=== PATIENT | male | born 1985 | race Caucasian/White ===

== ENCOUNTER 2018-03-29 10:14 | Emergency (ER) | payer MEDICAID ==
[~2018-03-29] VITALS: Ht 591.1 cm; Wt 63.6 kg
[~2018-03-29 10:14] MED LIST: NO HOME MEDS
[2018-03-29 10:17] VITALS: BP 115/75
== END 2018-03-29 10:57 | disposition home or self-care (01) ==
LOC: ER 10:14
DX: F11.23 Opioid dependence with withdrawal (principal); G89.29 Other chronic pain; F12.90 Cannabis use, unspecified, uncomplicated; Z56.0 Unemployment, unspecified; Z59.0 Homelessness; Z60.2 Problems related to living alone
CPT/HCPCS: 99283

== ENCOUNTER 2018-07-28 16:06 | Emergency (ER) | payer MEDICAID ==
[~2018-07-28] VITALS: Ht 172.7 cm; Wt 68.2 kg
[2018-07-28 16:29] VITALS: BP 112/71
[2018-07-28] MEDS ORDERED: CEPH250T PO (16:51)
[2018-07-28] MEDS ORDERED: SULF1TAB49 PO (16:51)
[2018-07-28] MEDS ORDERED: LIDOcaine 1.5% w/epinephrine 1:200,000 5ml ampul IJ ONE (17:20)
[2018-07-28] MEDS ORDERED: LIDOcaine 1% w/epiNEPHrine 1:200,000 30ml vial IJ ONE (17:25)
[2018-07-28] MEDS ORDERED: cephalexin 250mg capsule PO ONE (17:40)
[2018-07-28] MEDS ORDERED: sulfamethoxazole/trimethoprim DS (800/160mg) tablet PO ONE (17:40)
== END 2018-07-28 17:52 | disposition home or self-care (01) ==
LOC: ER 16:06
DX: L02.414 Cutaneous abscess of left upper limb (principal); F12.10 Cannabis abuse, uncomplicated; G89.29 Other chronic pain; D64.9 Anemia, unspecified; Z56.0 Unemployment, unspecified; Z59.0 Homelessness
CPT/HCPCS: 10060; 99283; J3490

== ENCOUNTER 2019-08-08 23:41 | Emergency (ER) | payer MEDICAID ==
[~2019-08-08] VITALS: Ht 172.7 cm; Wt 70.0 kg
[2019-08-09] MEDS ORDERED: CEPH250T PO (00:26)
[2019-08-09 01:11] VITALS: BP 117/72
== END 2019-08-09 00:45 | disposition home or self-care (01) ==
LOC: ER 23:42
DX: S61.402A Unspecified open wound of left hand, initial encounter (principal); S61.401A Unspecified open wound of right hand, initial encounter; G89.29 Other chronic pain; F12.90 Cannabis use, unspecified, uncomplicated; F11.90 Opioid use, unspecified, uncomplicated; Z86.19 Personal history of other infectious and parasitic diseases; Z60.2 Problems related to living alone; Z59.0 Homelessness; Z56.0 Unemployment, unspecified; Z79.2 Long term (current) use of antibiotics; X58.XXXA Exposure to other specified factors, initial encounter; Y93.89 Activity, other specified; Y92.89 Other specified places as the place of occurrence of the external cause; Y99.8 Other external cause status
CPT/HCPCS: 99283

== ENCOUNTER 2020-08-01 23:41 | Inpatient (IN) | payer MEDICAID ==
[~2020-08-01] VITALS: Ht 172.7 cm; Wt 65.1 kg
[2020-08-01] MEDS ORDERED: naloxone 2mg/2ml inj IV STA (23:48)
[2020-08-01] MEDS ORDERED: normal saline 1000ML IV soln IV ONE (23:50)
[2020-08-02] VITALS (20 sets, daily range): BP systolic 95–118; BP diastolic 53–79
[2020-08-02] MEDS ORDERED: normal saline 1000ML IV soln IVB ONE (00:05)
[2020-08-02] MEDS ORDERED: acetaminophen 325mg tablet PO ONE (00:10)
[2020-08-02] MEDS ORDERED: piperacillin/tazo 3.375gm/50ml 50 ML IV ONE (00:10)
[2020-08-02] MEDS ORDERED: azithromycin/NS 500mg/250ml 250 ML IV ONE (00:10)
[2020-08-02 00:30] LABS: BASOPHILS % (AUTO) 0.2 % (0-1); EOSINOPHILS # (AUTO) 0.1 X10'3 (0-0.9); EOSINOPHILS % (AUTO) 0.5 % (0-6); HEMATOCRIT 30.1 % (42.0-52.0); HEMOGLOBIN 9.8 g/dl (14.0-17.9); LYMPHOCYTES # (AUTO) 0.6 X10'3 (1.1-4.8); LYMPHOCYTES % (AUTO) 4.8 % (21-51); MEAN CORPUSCULAR HEMOGLOBIN 23.4 PG (27.0-31.0); MEAN CORPUSCULAR HGB CONC 32.7 g/dL (33.0-36.5); MEAN CORPUSCULAR VOLUME 71.5 FL (78-98); MEAN PLATELET VOLUME 9.1 FL (7.4-10.4); MONOCYTES # (AUTO) 1.8 X10'3 (0-0.9); MONOCYTES % (AUTO) 13.3 % (2-12); NEUTROPHILS # (AUTO) 10.8 X10'3 (1.8-7.7); NEUTROPHILS % (AUTO) 81.2 % (42-75); PLATELET COUNT 100 X10'3 (140-440); RED BLOOD COUNT 4.21 X10'6 (4.70-6.10); RED CELL DISTRIBUTION WIDTH 16.2 % (11.5-14.5); WHITE BLOOD COUNT 13.3 X10'3 (4.5-11.0)
[2020-08-02 00:47] LABS: TOTAL CELLS COUNTED 100
[2020-08-02 00:48] LABS: ANISOCYTOSIS 1+; PLATELET ESTIMATE DECREASED
[2020-08-02 00:51] LABS: ALANINE AMINOTRANSFERASE 20 U/L (12-78); ALBUMIN 2.2 G/DL (3.4-5.0); ALBUMIN/GLOBULIN RATIO 0.5 (1.1-1.5); ALKALINE PHOSPHATASE 150 IU/L (46-116); ANION GAP 11 (8-16); ASPARTATE AMINO TRANSFERASE 37 U/L (10-37); BILIRUBIN,TOTAL 0.8 MG/DL (0.1-1.0); BLOOD UREA NITROGEN 60 MG/DL (7-18); BUN/CREATININE RATIO 31.9 (5.4-32.0); CALCIUM 8.3 MG/DL (8.5-10.1); CHLORIDE 94 MMOL/L (99-107); CREATININE 1.88 MG/DL (0.60-1.10); ETHANOL < 0.010 GM/DL (0.0-0.010); GLUCOSE 129 MG/DL (70-104); POTASSIUM 3.4 MMOL/L (3.5-5.1); SODIUM 130 MMOL/L (135-145); TOTAL PROTEIN 6.8 G/DL (6.4-8.2); eGFR 42 ML/MIN
[2020-08-02] MEDS ORDERED: erythromycin ophthalmic ointment 1gm tube RIGHTEYE ONE (01:05)
[2020-08-02] MEDS ORDERED: ibuprofen tablet 400 MG TABLET PO ONE (01:05)
[2020-08-02] MEDS ORDERED: normal saline 1000ml 1,000 ML IV ONE (01:30)
[2020-08-02] MEDS ORDERED: iohexol 300mg/ml 100ml inj. ONE (01:45)
[2020-08-02 01:52] LABS: CLARITY,URINE CLEAR (Clear); COLOR,URINE YELLOW (Yellow); GLUCOSE, URINE NEGATIVE (Neg); KETONES,URINE NEGATIVE (Neg); LEUKOCYTE ESTERASE ,URINE NEGATIVE (Neg); NITRITES, URINE NEGATIVE (Neg); OCCULT BLOOD,URINE LARGE (Neg); PH,URINE 5.5 (4.8-8.0); PROTEIN,URINE 100 mg/dl (Neg)
[2020-08-02 01:53] LABS: UA COLLECTION TYPE CLN CATCH MIDSTREAM
[2020-08-02 02:04] LABS: CELLULAR CAST 0-4 /LPF (NEGATIVE)
[2020-08-02 02:05] LABS: SQUAMOUS EPITHELIAL CELL,UR FEW /LPF (FEW); WBC CLUMPS,URINE FEW /HPF (NEGATIVE)
[2020-08-02 02:06] LABS: BACTERIA,URINE 2+ /HPF (Neg)
[2020-08-02 02:17] LABS: URINE AMPHETAMINE SCREEN POSITIVE (Neg); URINE BARBITUATE SCREEN NEGATIVE (Neg); URINE BENZODIAZEPINES SCREEN NEGATIVE (Neg); URINE CANNABINOID SCREEN NEGATIVE (Neg); URINE COCAINE SCREEN NEGATIVE (Neg); URINE METHADONE SCREEN NEGATIVE (Neg); URINE OPIATE SCREEN POSITIVE (Neg); URINE PHENCYCLIDINE SCREEN NEGATIVE (Neg)
[2020-08-02] MEDS: NORepinephrine 8mg/ 250ml NS 250 ML IV SCH ×2 (03:31→23:38)
[2020-08-02] MEDS ORDERED: magnesium 2GM in 50ml NS 50 ML IV PRN (03:55)
[2020-08-02] MEDS: normal saline 1000ml 1,000 ML IV SCH ×2 (03:55→23:38)
[2020-08-02] MEDS ORDERED: NORepinephrine 8mg/ 250ml NS 250 ML IV PRN (03:55)
[2020-08-02] MEDS ORDERED: potassium Cl 40MEQ/250ML bag 270 ML IV PRN (03:55)
[2020-08-02] MEDS ORDERED: potassium Cl 20 mEq SR tablet PO PRN (03:55)
[2020-08-02] MEDS ORDERED: ondansetron/PF 4mg/2ml inj IV PRN (03:55)
[2020-08-02] MEDS ORDERED: normal saline 1000ml 1,000 ML IV PRN (03:55)
[2020-08-02] MEDS ORDERED: magnesium 4gm in 100ml NS 100 ML IV PRN (03:55)
[2020-08-02] MEDS ORDERED: acetaminophen 325mg tablet PO PRN (03:55)
[2020-08-02 04:43] LABS: MAGNESIUM 2.1 MG/DL (1.5-2.4); PHOSPHORUS 2.9 MG/DL (2.3-4.5); TROPONIN I < 0.04 NG/ML (0.0-0.05)
[2020-08-02 04:50] LABS: PARTIAL THROMBOPLASTIN TIME 35 SECONDS (22-32)
[2020-08-02] MEDS ORDERED: SODIUM CHLORIDE IV ONE ×2 (05:00)
[2020-08-02] MEDS ORDERED: VANCOMYCIN IV ONE ×2 (05:00)
--- NOTE | 2020-08-02 05:20 | NUR ---
Patient here from ER in room ICU 2046. I have received report from Martin GOMEZ and had the opportunity to ask questions and assume patient care.
--- NOTE | 2020-08-02 06:10 | NUR ---
Patient in room ICU 2046. I have received report from NOC RN and had the opportunity to ask questions and assume patient care.
[2020-08-02] MEDS ORDERED: heparin 25,000 UNIT/250ml bag 250 ML IV SCH (06:20)
[2020-08-02] MEDS ORDERED: heparin 10,000 units/1 ML INJ IV PRN (06:20)
[2020-08-02] MEDS ORDERED: heparin 10,000 units/1 ML INJ IV ONE (06:20)
--- NOTE | 2020-08-02 06:22 | NUR ---
Problems reprioritized. Patient report given, questions answered & plan of care reviewed with oncoming shift.
[2020-08-02] MEDS: pantoprazole 40mg Tablet.DR PO SCH (07:32)
[2020-08-02] MEDS: docusate sod 100mg capsule PO SCH ×2 (07:32→20:46)
[2020-08-02] MEDS: potassium Cl 20 mEq SR tablet PO PRN ×2 (07:32→13:12)
[2020-08-02] MEDS: piperacillin/tazo 3.375gm/50ml 50 ML IV SCH ×3 (07:33→23:36)
[2020-08-02 07:34] LABS: ALANINE AMINOTRANSFERASE 18 U/L (12-78); ALBUMIN 1.8 G/DL (3.4-5.0); ALBUMIN/GLOBULIN RATIO 0.5 (1.1-1.5); ALKALINE PHOSPHATASE 105 IU/L (46-116); ANION GAP 10 (8-16); ASPARTATE AMINO TRANSFERASE 35 U/L (10-37); BILIRUBIN,TOTAL 0.8 MG/DL (0.1-1.0); BLOOD UREA NITROGEN 46 MG/DL (7-18); BUN/CREATININE RATIO 28.4 (5.4-32.0); CALCIUM 7.8 MG/DL (8.5-10.1); CHLORIDE 103 MMOL/L (99-107); CREATININE 1.62 MG/DL (0.60-1.10); GLUCOSE 131 MG/DL (70-104); POTASSIUM 3.5 MMOL/L (3.5-5.1); SODIUM 136 MMOL/L (135-145); TOTAL CARBON DIOXIDE 23.3 MMOL/L (24-32); TOTAL PROTEIN 5.7 G/DL (6.4-8.2); eGFR 50 ML/MIN
[2020-08-02] MEDS ORDERED: heparin, porcine 5000 units/ml vial SQ SCH (08:00)
[2020-08-02] MEDS: buprenorphine/naloxone 8MG-2MG SUBlingual film SL SCH (08:00)
--- NOTE | 2020-08-02 09:24 | NUR ---
During assessment, There were no open wounds on patient. Patient was cleaned and dried and new bedding. ALL IV fluids going. patient annoyed that he does not have any pain medication available as he states severe pain in left arm where he IM an injected of heroin. Throughout patients body, it was noted to have several track mccurdy on arms, legs feet and other places. Opti foam applied as prevention. Will continue to monitor.
--- NOTE | 2020-08-02 09:45 | NUR ---
Dr. Garcia at bedside with patient and Nurse. MD aware of CMP values and Cancelled CT of head. Pt was seen sitting up in bed eating breakfast A/O X3. Able to follow commands. Heparin drips will also be on hold due to patients Kidney function BUN 46, Cr 1.62. Echo ordered. CTA is also on hold until MD can review plan of care and studies. Dilaudid 1mg PRN Q4, if not tolerated change to PRN Q2. Will continue to monitor.
[2020-08-02] MEDS: HYDROmorphone 1 mg/ml syringe IV PRN ×3 (10:49→23:37)
--- NOTE | 2020-08-02 11:53 | NUR ---
Stopped patient drip for Norepinephrine that was at 0.2. Per MDs request to move pt upstairs. We will continue to monitor.
--- NOTE | 2020-08-02 13:17 | NUR ---
Initial: Pt admit DX septic pulmonary emboli, heroin OD, and hx hep C as well as homeless per EMR. PO 100% avg heart healthy diet meeting needs. No BM yet though new admit. No nutrition concerns at this time. Will continue to monitor. Rec: 1. continue heart healthy diet 2. bowel care per rx 3. wts per rx Addendum: 08/02/20 at [address] Amended: Links added.
[2020-08-02] MEDS: acetaminophen 325mg tablet PO PRN (17:05)
--- NOTE | 2020-08-02 17:11 | NUR ---
Called Dr. Garcia to report patient tachycardia 137s and temp rising. is aware and no new orders at this time. Treat Tylenol for fever and watch rhythm. OK to try Ativan as well. Will continue to monitor.
[2020-08-02] MEDS: LORazepam 2 mg/ml vial IV PRN (17:19)
--- NOTE | 2020-08-02 17:22 | NUR ---
Patient receive Tylenol and Ativan 1MG. We will continue to monitor.
[2020-08-02] MEDS: vancomycin/NS 1 GM ADD-VANTAGE 250 ML IV SCH (17:43)
--- NOTE | 2020-08-02 18:11 | NUR ---
Problems reprioritized. Patient report given, questions answered & plan of care reviewed with Adolph Nurse is aware of Tach cardiac as well a RR. Will continue to monitor.
[2020-08-02] MEDS: lactobacillus rhamnosus 10,000 MMU CELLS/CAPSULE PO SCH (20:46)
[2020-08-02] MEDS: enoxaparin 30mg/0.3ml syringe SUBCUT SCH (20:47)
[2020-08-03] VITALS (19 sets, daily range): BP systolic 94–129; BP diastolic 57–81
[2020-08-03] MEDS: LORazepam 2 mg/ml vial IV PRN ×2 (02:34→18:03)
[2020-08-03 03:35] LABS: BASOPHILS % (AUTO) 0.4 % (0-1); EOSINOPHILS % (AUTO) 0.4 % (0-6); HEMATOCRIT 24.9 % (42.0-52.0); HEMOGLOBIN 7.9 g/dl (14.0-17.9); LYMPHOCYTES # (AUTO) 1.2 X10'3 (1.1-4.8); LYMPHOCYTES % (AUTO) 11.8 % (21-51); MEAN CORPUSCULAR HGB CONC 31.8 g/dL (33.0-36.5); MEAN CORPUSCULAR VOLUME 72.3 FL (78-98); MONOCYTES # (AUTO) 1.5 X10'3 (0-0.9); MONOCYTES % (AUTO) 14.7 % (2-12); NEUTROPHILS # (AUTO) 7.6 X10'3 (1.8-7.7); NEUTROPHILS % (AUTO) 72.7 % (42-75); PLATELET COUNT 102 X10'3 (140-440); RED BLOOD COUNT 3.44 X10'6 (4.70-6.10); RED CELL DISTRIBUTION WIDTH 16.8 % (11.5-14.5); WHITE BLOOD COUNT 10.5 X10'3 (4.5-11.0)
[2020-08-03 03:59] LABS: ALANINE AMINOTRANSFERASE 14 U/L (12-78); ALBUMIN 1.6 G/DL (3.4-5.0); ALBUMIN/GLOBULIN RATIO 0.4 (1.1-1.5); ALKALINE PHOSPHATASE 96 IU/L (46-116); ANION GAP 9 (8-16); ASPARTATE AMINO TRANSFERASE 21 U/L (10-37); BILIRUBIN,TOTAL 0.6 MG/DL (0.1-1.0); BLOOD UREA NITROGEN 29 MG/DL (7-18); BUN/CREATININE RATIO 21.6 (5.4-32.0); CALCIUM 7.9 MG/DL (8.5-10.1); CHLORIDE 109 MMOL/L (99-107); CREATININE 1.34 MG/DL (0.60-1.10); GLUCOSE 121 MG/DL (70-104); MAGNESIUM 1.9 MG/DL (1.5-2.4); POTASSIUM 3.7 MMOL/L (3.5-5.1); SODIUM 140 MMOL/L (135-145); TOTAL CARBON DIOXIDE 21.7 MMOL/L (24-32); TOTAL PROTEIN 5.5 G/DL (6.4-8.2); eGFR 62 ML/MIN
[2020-08-03] MEDS: HYDROmorphone 1 mg/ml syringe IV PRN ×4 (04:14→21:20)
[2020-08-03] MEDS ORDERED: ibuprofen tablet 400 MG TABLET PO PRN (04:30)
--- NOTE | 2020-08-03 04:47 | NUR ---
TEMP 38.6 C, REFRACTORY TO TYLENOL. INFORMED BON OJEDA ORDERED, PUT ICE AND FAN ON PATIENT
[2020-08-03] MEDS: vancomycin/NS 1 GM ADD-VANTAGE 250 ML IV SCH ×2 (05:42→19:04)
--- NOTE | 2020-08-03 06:15 | NUR ---
Patient in room ICU 2046. I have received report from Adolph Dumont RN and had the opportunity to ask questions and assume patient care.
[2020-08-03] MEDS: piperacillin/tazo 3.375gm/50ml 50 ML IV SCH ×2 (07:42→15:08)
[2020-08-03] MEDS: docusate sod 100mg capsule PO SCH ×2 (07:43→20:49)
[2020-08-03] MEDS: pantoprazole 40mg Tablet.DR PO SCH (07:43)
[2020-08-03] MEDS: lactobacillus rhamnosus 10,000 MMU CELLS/CAPSULE PO SCH ×2 (07:43→20:49)
[2020-08-03] MEDS: buprenorphine/naloxone 8MG-2MG SUBlingual film SL SCH (08:00)
[2020-08-03] MEDS: acetaminophen 325mg tablet PO PRN (09:15)
--- NOTE | 2020-08-03 09:34 | NUR ---
Dr. Garcia at bedside with patient and Nurse. MD is aware of patient progress and will be working on his transfer to another unit. Patient stable per MD orders. VSS and patient able to follow commands. Will continue to monitor.
[2020-08-03] MEDS: normal saline 1000ml 1,000 ML IV SCH ×2 (13:29→19:07)
--- NOTE | 2020-08-03 16:35 | NUR ---
Report received from [facility] LIAISONAdolph
--- NOTE | 2020-08-03 16:39 | NUR ---
report called to receiving shift
--- NOTE | 2020-08-03 17:12 | NUR ---
Transferred to [facility] in stable condition. All belongings with pt (just clothes, no valuables). Receiving RN at bedside
[2020-08-03] MEDS ORDERED: VANCOMYCIN LEVEL IV ONE (17:30)
--- NOTE | 2020-08-03 18:35 | NUR ---
Problems reprioritized. Patient report given, questions answered & plan of care reviewed with PATRICIA Maldonado.
--- NOTE | 2020-08-03 18:41 | NUR ---
Patient in room PCU 3018. I have received report from Maira GOMEZ and had the opportunity to ask questions and assume patient care.
[2020-08-03] MEDS: enoxaparin 30mg/0.3ml syringe SUBCUT SCH (20:50)
[2020-08-04] MEDS: piperacillin/tazo 3.375gm/50ml 50 ML IV SCH ×4 (00:11→23:55)
[2020-08-04] MEDS: LORazepam 2 mg/ml vial IV PRN ×2 (00:39→20:31)
[2020-08-04 02:00] VITALS: BP 107/62
[2020-08-04] MEDS: HYDROmorphone 1 mg/ml syringe IV PRN ×5 (03:05→22:08)
[2020-08-04] MEDS ORDERED: lactulose 20gm/30ml cup PO PRN (03:55)
[2020-08-04] MEDS: vancomycin/NS 1 GM ADD-VANTAGE 250 ML IV SCH ×2 (05:44→17:47)
[2020-08-04] MEDS: normal saline 1000ml 1,000 ML IV SCH ×3 (05:46→22:10)
[2020-08-04 06:10] LABS: BASOPHILS % (AUTO) 0.4 % (0-1); EOSINOPHILS # (AUTO) 0.1 X10'3 (0-0.9); EOSINOPHILS % (AUTO) 0.7 % (0-6); HEMATOCRIT 22.4 % (42.0-52.0); HEMOGLOBIN 7.1 g/dl (14.0-17.9); LYMPHOCYTES # (AUTO) 1.7 X10'3 (1.1-4.8); LYMPHOCYTES % (AUTO) 14.2 % (21-51); MEAN CORPUSCULAR HEMOGLOBIN 22.8 PG (27.0-31.0); MEAN CORPUSCULAR HGB CONC 31.8 g/dL (33.0-36.5); MEAN CORPUSCULAR VOLUME 71.6 FL (78-98); MEAN PLATELET VOLUME 8.3 FL (7.4-10.4); MONOCYTES # (AUTO) 1.6 X10'3 (0-0.9); MONOCYTES % (AUTO) 13.4 % (2-12); NEUTROPHILS # (AUTO) 8.7 X10'3 (1.8-7.7); NEUTROPHILS % (AUTO) 71.3 % (42-75); PLATELET COUNT 202 X10'3 (140-440); RED BLOOD COUNT 3.13 X10'6 (4.70-6.10); RED CELL DISTRIBUTION WIDTH 16.8 % (11.5-14.5); WHITE BLOOD COUNT 12.1 X10'3 (4.5-11.0)
--- NOTE | 2020-08-04 06:27 | NUR ---
Problems reprioritized. Patient report given, questions answered & plan of care reviewed with Kya GOMEZ.
--- NOTE | 2020-08-04 06:28 | NUR ---
Patient in room PCU 3018. I have received report from Erica GOMEZ and had the opportunity to ask questions and assume patient care.
[2020-08-04 06:30] VITALS: BP 119/83
[2020-08-04 06:42] LABS: ALANINE AMINOTRANSFERASE 14 U/L (12-78); ALBUMIN 1.4 G/DL (3.4-5.0); ALBUMIN/GLOBULIN RATIO 0.4 (1.1-1.5); ALKALINE PHOSPHATASE 106 IU/L (46-116); ANION GAP 9 (8-16); ASPARTATE AMINO TRANSFERASE 15 U/L (10-37); BILIRUBIN,TOTAL 0.5 MG/DL (0.1-1.0); BLOOD UREA NITROGEN 18 MG/DL (7-18); BUN/CREATININE RATIO 15.9 (5.4-32.0); CALCIUM 8.4 MG/DL (8.5-10.1); CHLORIDE 107 MMOL/L (99-107); CREATININE 1.13 MG/DL (0.60-1.10); GLUCOSE 99 MG/DL (70-104); MAGNESIUM 1.7 MG/DL (1.5-2.4); PHOSPHORUS 2.2 MG/DL (2.3-4.5); POTASSIUM 3.5 MMOL/L (3.5-5.1); SODIUM 139 MMOL/L (135-145); TOTAL CARBON DIOXIDE 22.8 MMOL/L (24-32); TOTAL PROTEIN 5.4 G/DL (6.4-8.2); eGFR 75 ML/MIN
[2020-08-04 06:56] LABS: ANISOCYTOSIS 1+; MICROCYTOSIS 1+; PLATELET ESTIMATE NORMAL; TOTAL CELLS COUNTED 100
[2020-08-04 06:57] LABS: HYPOCHROMASIA 1+
--- NOTE | 2020-08-04 07:00 | NUR ---
Late entry: Patient asking for pain medicine, patient states "Give me as much as you could!"Patient appear relaxed and still sleepy while talking to me. Patient did not said where he is hurting and what the pain level is.
[2020-08-04] MEDS: pantoprazole 40mg Tablet.DR PO SCH (07:30)
[2020-08-04] MEDS: docusate sod 100mg capsule PO SCH ×2 (08:00→20:31)
[2020-08-04] MEDS: lactobacillus rhamnosus 10,000 MMU CELLS/CAPSULE PO SCH ×2 (08:00→20:31)
[2020-08-04] MEDS: buprenorphine/naloxone 8MG-2MG SUBlingual film SL SCH (08:00)
--- NOTE | 2020-08-04 08:55 | NUR ---
Patient uncooperative, too sleepy at this time, refusing his medications
--- NOTE | 2020-08-04 09:33 | NUR ---
Patient refused Suboxone, requested Dilaudid IV instead for his pain. When I asked him where is the pain, he said "everywhere!".
[2020-08-04 11:00] VITALS: BP 131/80
--- NOTE | 2020-08-04 11:17 | NUR ---
Dr. Lara notified about patient refusing Suboxone and only wants Dilaudid. I also let him know about hgb today of 7.1
--- NOTE | 2020-08-04 13:22 | NUR ---
Patient was asking me for his pain medicine but he is too sleepy, he won't keep conversation with me, he will open eyes to answer my question. I called CT department to request him to be on gurney instead of wheelchair because he is too sleepy.
[2020-08-04] MEDS ORDERED: iohexol 350MG/ML 100ml bottle IV ONE (13:41)
[2020-08-04 15:00] VITALS: BP 130/88
[2020-08-04 18:00] VITALS: BP 129/88
--- NOTE | 2020-08-04 18:48 | NUR ---
Patient in room PCU 3018. I have received report from MIRANDA GOMEZ and had the opportunity to ask questions and assume patient care.
[2020-08-04] MEDS: enoxaparin 30mg/0.3ml syringe SUBCUT SCH (20:31)
[2020-08-04 22:00] VITALS: BP 118/85
[2020-08-05] MEDS: HYDROmorphone 1 mg/ml syringe IV PRN ×2 (02:08→06:08)
[2020-08-05 02:16] VITALS: BP 125/82
[2020-08-05 05:50] LABS: BASOPHILS # (AUTO) 0.1 X10'3 (0-0.2); BASOPHILS % (AUTO) 0.8 % (0-1); EOSINOPHILS # (AUTO) 0.1 X10'3 (0-0.9); EOSINOPHILS % (AUTO) 0.9 % (0-6); LYMPHOCYTES # (AUTO) 2.1 X10'3 (1.1-4.8); LYMPHOCYTES % (AUTO) 19.1 % (21-51); MEAN CORPUSCULAR HGB CONC 32.3 g/dL (33.0-36.5); MEAN CORPUSCULAR VOLUME 71.2 FL (78-98); MEAN PLATELET VOLUME 7.8 FL (7.4-10.4); MONOCYTES # (AUTO) 1.4 X10'3 (0-0.9); MONOCYTES % (AUTO) 12.8 % (2-12); NEUTROPHILS # (AUTO) 7.4 X10'3 (1.8-7.7); NEUTROPHILS % (AUTO) 66.4 % (42-75); PLATELET COUNT 311 X10'3 (140-440); RED BLOOD COUNT 2.97 X10'6 (4.70-6.10); RED CELL DISTRIBUTION WIDTH 16.6 % (11.5-14.5); WHITE BLOOD COUNT 11.2 X10'3 (4.5-11.0)
[2020-08-05 05:51] LABS: HEMATOCRIT 21.1 % (42.0-52.0); HEMOGLOBIN 6.8 g/dl (14.0-17.9)
[2020-08-05] MEDS: vancomycin/NS 1 GM ADD-VANTAGE 250 ML IV SCH (06:02)
--- NOTE | 2020-08-05 06:35 | NUR ---
Patient in room PCU 3018. I have received report from Sola GOMEZ and had the opportunity to ask questions and assume patient care.
--- NOTE | 2020-08-05 06:35 | NUR ---
Problems reprioritized. Patient report given, questions answered & plan of care reviewed with DIMAS GOMEZ.Patient showing signs of heroin withdraw and has been anxious throughout the night. Pain medications administered per MD order. Patient is impulsive and has a bed alarm on.
[2020-08-05 07:02] VITALS: BP 132/79
[2020-08-05 07:09] LABS: ALANINE AMINOTRANSFERASE 16 U/L (12-78); ALBUMIN 1.5 G/DL (3.4-5.0); ALBUMIN/GLOBULIN RATIO 0.3 (1.1-1.5); ALKALINE PHOSPHATASE 97 IU/L (46-116); ANION GAP 10 (8-16); ASPARTATE AMINO TRANSFERASE 20 U/L (10-37); BILIRUBIN,TOTAL 0.5 MG/DL (0.1-1.0); BLOOD UREA NITROGEN 11 MG/DL (7-18); BUN/CREATININE RATIO 10.5 (5.4-32.0); CALCIUM 7.6 MG/DL (8.5-10.1); CHLORIDE 108 MMOL/L (99-107); CREATININE 1.05 MG/DL (0.60-1.10); GLUCOSE 97 MG/DL (70-104); MAGNESIUM 1.5 MG/DL (1.5-2.4); PHOSPHORUS 3.7 MG/DL (2.3-4.5); POTASSIUM 3.7 MMOL/L (3.5-5.1); SODIUM 139 MMOL/L (135-145); TOTAL CARBON DIOXIDE 21.5 MMOL/L (24-32); eGFR 82 ML/MIN
[2020-08-05] MEDS: piperacillin/tazo 3.375gm/50ml 50 ML IV SCH (07:15)
[2020-08-05] MEDS: pantoprazole 40mg Tablet.DR PO SCH (07:15)
[2020-08-05] MEDS: docusate sod 100mg capsule PO SCH (07:15)
[2020-08-05] MEDS: lactobacillus rhamnosus 10,000 MMU CELLS/CAPSULE PO SCH (07:16)
[2020-08-05] MEDS: buprenorphine/naloxone 8MG-2MG SUBlingual film SL SCH (07:17)
--- NOTE | 2020-08-05 08:51 | NUR ---
PAGER ID: [phone] MESSAGE: [id number] GOOD MORNING Meagan Ferrer is leaving AMA. Aury [phone]
--- NOTE | 2020-08-05 08:55 | NUR ---
Patient states that he is "better off on the streets, much better off than staying here in the hospital laying in this bed". He is yelling that he can't take this anymore. Educated patient on his condition and why he needs to stay in the hospital. Explained to patient that he has an infection as well and will be right back to the hospital, he states "probably will". Explained to patient that he could and he states "he needs out of her now." Patient is truthful that he is going to go use again. Patient is yelling he just wants to get out of here and to get him all of his stuff. Explained to patient that his IJ will need to be taken out by nursing staff and not to pull it out his IV on his own, he agrees not to. Addendum: 08/05/20 at 1000 by Aury Stone RN IV tubbing was cut in half, found when taking out the tubbing from IV pump. IJ was not found in tact. Patient assumed to leave with IJ intact.
--- NOTE | 2020-08-05 09:00 | NUR ---
Went into patients room to remove IV and AMA paper work, patient is not to be found. Patient did not sign paper work, Eloped. Patients IV tubing laying on the ground still running. Charge nurse notified. notified. Addendum: 08/05/20 at 0958 by Aury Stone RN Patient left with IJ, IJ not connected to IVF tubing. Notified charge nurse who is contacting Moses Chandra
--- NOTE | 2020-08-05 09:23 | NUR ---
Event report completed: Ref number [id number]
--- NOTE | 2020-08-05 10:01 | NUR ---
When removing IV tubbing for house Keeping IV IJ was not at the end of tubbing. Assuming patient left with IJ in place. Charge nurse notified, he will be checking with House Sup on what steps to take.
--- NOTE | 2020-08-05 10:09 | NUR ---
[facility] notified of potential that the patient left AMA with IJ in his neck, waiting for return call from [facility].
== END 2020-08-05 09:03 | disposition left against medical advice (07) | DRG 720 ==
LOC: ER 23:42 → ED HOLD 08-02 03:54 → ICU 2S 08-02 05:05 → PCU 3S 08-03 17:33
PROVIDERS: ADMIT Internal Medicine Critical Care Medicine; ATTEND Internal Medicine Critical Care Medicine
DX: A41.01 Sepsis due to Methicillin susceptible Staphylococcus aureus (principal); I26.90 Septic pulmonary embolism without acute cor pulmonale; I76 Septic arterial embolism; L03.114 Cellulitis of left upper limb; N17.0 Acute kidney failure with tubular necrosis; R65.21 Severe sepsis with septic shock; Z20.828 Contact with and (suspected) exposure to other viral communicable diseases; B19.20 Unspecified viral hepatitis C without hepatic coma; D64.9 Anemia, unspecified; G89.29 Other chronic pain; Z86.711 Personal history of pulmonary embolism; Z87.891 Personal history of nicotine dependence; Z59.0 Homelessness
CPT/HCPCS: 36415; 36556; 71045; 71275; 73201; 80053; 80202; 80305; 80320; 81001; 82553; 83605; 83735; 84100; 84145; 84484; 85007; 85025; 85610; 85730; 86885; 86900; 86901; 86920; 87040; 87077; 87081; 87088; 87186; 87635; 93005; 93306; 93308; 99285; C9803; G0378; J0456; J1170; J1650; J2060; J2310; J2543; J3370; J7030; J7040; Q9967